=== PATIENT | female | born 1950 | race Caucasian/White ===

== ENCOUNTER 2023-11-30 10:33 | Outpatient (REF) | payer MEDICARE, MEDICAID, SELFPAY ==
[2023-11-30 14:48] LABS: Alanine Aminotransferase 18 U/L (0-31); Albumin Level 4.3 g/dL (3.5-5.0); Alkaline Phosphatase 61 U/L (39-117); Anion Gap 12 (12-20); Aspartate Amino Transferase 21 U/L (5-31); Bilirubin Direct 0.2 mg/dL (0.0-0.5); Bilirubin Total 0.5 mg/dL (0.0-1.0); Blood Urea Nitrogen 15 mg/dL (9-16); Calcium 9.7 mg/dL (8.4-10.2); Carbon Dioxide 27 mmol/L (22-29); Chloride 104 mmol/L (96-108); Cholesterol 220 mg/dL (<200); Estimated Glomerular Filt Rate > 60; Glucose Random 82 mg/dL (60-115); HDL Cholesterol 79 mg/dL (>40); LDL Cholesterol Calculated 124 mg/dL (<100); Potassium 3.9 mmol/L (3.3-5.1); Sodium 139 mmol/L (135-145); Total Protein 7.3 g/dL (6.5-8.0); Triglycerides 89 mg/dL (<150)
[2023-11-30 14:54] LABS: Thyroid Stimulating Hormone 1.74 uIU/mL (0.32-4.0)
== END 2023-11-30 10:34 | disposition home or self-care (01) ==
LOC: HO.CHCLDS 10:33
PROVIDERS: Visit Provider Student in an Organized Health Care Education/Training Program
DX: I10 Essential (primary) hypertension (principal); E03.9 Hypothyroidism, unspecified
CPT/HCPCS: 36415; 80048; 80061; 80076; 84443

== ENCOUNTER 2024-07-19 10:41 | Outpatient (REF) | payer MEDICARE, MEDICAID, SELFPAY ==
[2024-07-19 14:46] LABS: Alanine Aminotransferase 24 U/L (0-31); Albumin Level 4.1 g/dL (3.5-5.0); Alkaline Phosphatase 60 U/L (39-117); Anion Gap 10 (12-20); Aspartate Amino Transferase 31 U/L (5-31); Bilirubin Direct 0.2 mg/dL (0.0-0.5); Bilirubin Total 0.5 mg/dL (0.0-1.0); Blood Urea Nitrogen 16 mg/dL (9-16); Calcium 9.4 mg/dL (8.4-10.2); Carbon Dioxide 27 mmol/L (22-29); Chloride 106 mmol/L (96-108); Cholesterol 225 mg/dL (<200); Estimated Glomerular Filt Rate > 60; Glucose Random 84 mg/dL (60-115); HDL Cholesterol 78 mg/dL (>40); LDL Cholesterol Calculated 130 mg/dL (<100); Potassium 4.1 mmol/L (3.3-5.1); Sodium 139 mmol/L (135-145); Total Protein 7.2 g/dL (6.5-8.0); Triglycerides 88 mg/dL (<150)
[2024-07-19 15:03] LABS: TSH reflex Free T4 2.76 uIU/mL (0.32-4.0)
== END 2024-07-19 10:42 | disposition home or self-care (01) ==
LOC: HO.CHCLDS 10:41
PROVIDERS: Visit Provider Student in an Organized Health Care Education/Training Program
DX: I10 Essential (primary) hypertension (principal); E03.9 Hypothyroidism, unspecified; E78.00 Pure hypercholesterolemia, unspecified
CPT/HCPCS: 36415; 80048; 80061; 80076; 84443

== ENCOUNTER 2025-01-12 11:13 | Outpatient (REF) | payer MEDICARE, MEDICAID, SELFPAY ==
--- OUTSIDE RECORDS SUMMARY | 2025-01-12 13:33 | XMS_ITS | Encounter Summary ---
Author Organization [facility] Address [address] [place] [address] 7 [place] [address] Care Team Providers Care Neighborhood Aide Name Role Phone Mary Ellen Pinzon MD Primary Care Provider [phone] Encounter Details Date Type Department Care Team (Latest Contact Info) Description 05/26/2018 Abstract [facility] CONVERSIONS Dental, Provider, DDS Social History Tobacco Use Types Packs/Day Years Used Date Smoking Tobacco: Never Assessed Comments Unknown Sex and Gender Information Value Date Recorded Sex Assigned at Female 02/24/2022 10:19 AM EDT Legal Sex Female 10:19 AM EDT Gender Identity Female 02/24/2022 10:19 AM EDT Sexual Orientation Straight 02/24/2022 10 :19 AM EDT documented as of this encounter Plan of Treatment Upcoming Encounters Date Type Department Care Team (Late st Contact Info) Description 07/03/2025 10:00 AM EDT Office Visit [facility] ADULT DENTAL [address] [place] [address] Alvarez Grijalva documented as of this encounter Visit Diagnoses Not on filedocumented in this encounter Care Teams Neighborhood Aide Relationship Specialty Start Date End Date Mary Ellen Pinzon MD [address] [place] [address] PCP - General Family Medicine 04/12/12 documented as of this encounter
--- OUTSIDE RECORDS SUMMARY | 2025-01-12 13:33 | XMS_ITS | Encounter Summary ---
Author Organization [employer] Address [address] [place] [address] 7 [place] [address] Care Team Providers Care Architectural Representative Name Role Phone Mary Ellen Pinzon MD Primary Care Provider [phone] Reason for Visit * Reason Comments Med Refill Encounter Details Date Type Department Care Team ([facility] Contact Info) Description 09/01/2024 Refill [facility] CHC MED & PEDS [address] [place] [address] Mary Ellen Pinzon MD [address] [place] [address] Social History Tobacco Use Types Packs/Day Years Used Date Smoking Tobacco: Never Passive Smoke Exposure: Never Smokeless Tobacco: Never Alcohol Use Standard Drinks/Week Comments Never 0 (1 standard drink = 0.6 oz pur e alcohol) Depression Answer Date Recorded Patient Health Questionnaire-9 Score 0 09/29/2022 Housing Stability Answer Date Recorded What is your housing situation today? I have gera baker 11/24/[address] you li ve. Do you have problems with any of the following? None of the above 11/24/2023 Food Insecurity Answer Date Recorded Within the past 12 months, y ou worried that your food would run out before you got money to buy more: Never True 11/24/2023 Within the past 12 months,th e food you bought just didn't last and you didn't have enough money to get more: Never True Transportation Answer Date Recorded In the past 12 months, has l ack of transportation kept you from medical appts, meetings, work or from getting things needed for daily living? No 11/24/2023 Utilities Answer Date Recorded In the past 12 months, has t he electric, gas, oil or water company threatened to shut off services in your home? No 11/24/2023 Depression Answer Date Recorded Patient Health Questionnaire-2 Score 0 09/29/2022 Internet Access Answer Date Recorded Internet Access Q1 Yes 12/28/2023 Internet Access Q2 Not on file 12/28/2023 Comments No Sex and Gender Information Value Date Recorded Sex Assigned at Female 02/24/2022 10:19 AM EDT Legal Sex Female 10:19 AM EDT Gender Identity Female 02/24/2022 10:19 AM EDT Sexual Orientation Straight 02/24/2022 10 :19 AM EDT documented as of this encounter Plan of Treatment Upcoming Encounters Date Type Department Care Team (Late st Contact Info) Description 07/03/2025 10:00 AM EDT Office Visit [facility] ADULT DENTAL [address] [place] [address] Alvarez Grijalva documented as of this encounter Visit Diagnoses Not on filedocumented in this encounter Additional Health Concerns Assessment Noted Time PHQ-9 Depression Total Score: 0 09/30/19 23 10:35 AM EDT documented as of this encounter Care Teams Architectural Representative Relationship Specialty Start Date End Date Mary Ellen Pinzon MD [address] [place] [address] PCP - General Family Medicine 04/12/12 documented as of this encounter
--- OUTSIDE RECORDS SUMMARY | 2025-01-12 13:33 | XMS_ITS | Encounter Summary ---
Author Organization [employer] Address [address] [place] [address] 7 [place] [address] Care Team Providers Care Instructor Of Spanish Name Role Phone Mary Ellen Pinzon MD Primary Care Provider [phone] Reason for Visit * Reason Comments Med Change Request Encounter Details Date Type Department Care Team ([facility] Contact Info) Description 01/11/2025 Refill [facility] CHC MED & PEDS [address] [place] [address] Mary Ellen Pinzon MD [address] [place] [address] Anxiety Social History Tobacco Use Types Packs/Day Years [...] Description 07/03/2025 10:00 AM EDT Office Visit [facility] ADULT DENTAL [address] [place] [address] Alvarez Grijalva documented as of this encounter Visit Diagnoses Diagnosis Anxiety Anxiety state, unspecified documented in this encounter Additional Health Concerns Assessment Noted Time PHQ-9 Depression Total Score: 0 09/30/19 23 10:35 AM EDT documented as of this encounter Care Teams Instructor Of Spanish Relationship Specialty Start Date End Date Mary Ellen Pinzon MD [address] [place] [address] PCP - General Family Medicine 04/12/12 documented as of this encounter
--- OUTSIDE RECORDS SUMMARY | 2025-01-12 13:33 | XMS_ITS | Encounter Summary ---
Author Organization [employer] Address [address] [place] [address] 7 [place] [address] Care Team Providers Care Butcher Or Smallgoods Maker Name Role Phone Mary Ellen Pinzon MD Primary Care Provider [phone] Reason for Visit * Reason Comments Med Refill Encounter Details Date Type Department Care Team ([facility] Contact Info) Description 09/08/2023 Refill [facility] CHC MED & PEDS [address] [place] [address] Mary Ellen Pinzon MD [address] [place] [address] Social History Tobacco Use Types Packs/Day Years Used Date Smoking Tobacco: Never Passive Smoke Exposure: Never Smokeless Tobacco: Never Alcohol Use Standard Drinks/Week Comments Never 0 (1 standard drink = 0.6 oz pur e alcohol) Depression Answer Date Recorded Patient Health Questionnaire-9 Score 0 09/29/2022 Housing Stability Answer Date Recorded What is your housing situation today? I have gera baker 03/07/[address] you li ve. Do you have problems with any of the following? None of the above 03/07/2023 Food Insecurity Answer Date Recorded Within the past 12 months, y ou worried that your food would run out before you got money to buy more: Never True 03/07/2023 Within the past 12 months,th e food you bought just didn't last and you didn't have enough money to get more: Never True 02/2023 Transportation Answer Date Recorded In the past 12 months, has l ack of transportation kept you from medical appts, meetings, work or from getting things needed for daily living? No 03/07/2023 Utilities Answer Date Recorded In the past 12 months, has t he electric, gas, oil or water company threatened to shut off services in your home? No 03/07/2023 Depression Answer Date Recorded Patient Health Questionnaire-2 Score 0 09/29/2022 Comments No Sex and Gender Information Value [...] Description 07/03/2025 10:00 AM EDT Office Visit [facility] ADULT DENTAL [address] [place] [address] Alvarez Grijalva documented as of this encounter Visit Diagnoses Not on filedocumented in this encounter Additional Health Concerns Assessment Noted Time PHQ-9 Depression Total Score: 0 09/30/19 10:35 AM EDT documented as of this encounter Care Teams Butcher Or Smallgoods Maker Relationship Specialty Start Date End Date Mary Ellen Pinzon MD [address] [place] [address] PCP - General Family Medicine 04/12/12 documented as of this encounter
--- OUTSIDE RECORDS SUMMARY | 2025-01-12 13:33 | XMS_ITS | Encounter Summary ---
Author Organization [employer] Address [address] [place] [address] 7 [place] [address] Care Team Providers Care Settlement Clerk Name Role Phone Mary Ellen Pinzon MD Primary Care Provider [phone] Reason for Visit * Reason Onset Date Comments Lab Orders 09/28/2023 Encounter Details Date Type Department Care Team ([facility] st Contact Info) Description 09/28/2023 Telephone [facility] MEDICINE [address] [place] [address] Mary Ellen Pinzon MD [address] [place] [address] Lab Orders Social History Tobacco Use Types Packs/Day Years [...] AM EDT documented as of this encounter Miscellaneous Notes * Telephone Encounter - Wing Omaira RN - 10/02/2023 12:14 PM EDT Tc to pt regarding labs being ordered and cane be done when pt is available. Pt verbalized understanding and agreement with plan. * Telephone Encounter - Mary Ellen Pinzon MD - 10/02/2023 11:27 AM EDT Lab order sent * Telephone Encounter - Wing Omaira RN - 09/28/2023 4:17 PM EDT Please advise, tc to pt about lab request. Pt stated provider ordered labs before appt to help adjust thyroid and BP medications at visit. Stated would pass request up to PCP and would have a nurse call when the PCP responded. Pt verbalized understanding and agreement with plan. Stated she would call next week if she heard nothing back. * Telephone Encounter - Jase Moore - 09/28/2023 3:39 PM EDT Tc from pt requesting labs for upcoming appt 11/29. Pt stated no immediate concerns, just wants to get a full check up. If any questions please contact pt at [phone]. documented in this encounter Plan of Treatment Upcoming Encounters Date Type Department Care Team (Late st Contact Info) Description 07/03/2025 10:00 AM EDT Office Visit [facility] ADULT DENTAL [address] [place] [address] Alvarez Grijalva documented as of this encounter Visit Diagnoses Not on filedocumented in this encounter Additional Health Concerns Assessment Noted Time PHQ-9 Depression Total Score: 0 09/30/19 10:35 AM EDT documented as of this encounter Care Teams Settlement Clerk Relationship Specialty Start Date End Date Mary Ellen Pinzon MD [address] [place] [address] PCP - General Family Medicine 04/12/12 documented as of this encounter
--- OUTSIDE RECORDS SUMMARY | 2025-01-12 13:33 | XMS_ITS | Clinical Summary ---
Author Organization [employer] Address [address] [facility] 7t [place] [address] Care Team Providers Care Sales Commissions Analyst Name Role Phone Mary Ellen Pinzon MD Primary Care Provider [phone] Allergies Active Allergy Reactions Criticality Noted Date Comments Amlodipine Hives High 07/03/2016 Hydrochlorothiazide High 07/03/2016 Other reaction(s): Hives / Skin Rash Lisinopril Hives High 07/03/2016 Sulfa Antibiotics 09/15/2011 Other reaction(s): Hives / Skin Rash Medications Diclofenac Sodium 1 % gel apply (2G) by topical route 4 times every day to the affected area(s) 11/14/19 18 Active omega-3 1000 MG capsule capsule TAKE 1 CAPSULE BY MOUTH EVERY DAY OTC NOT COVERED BY INSURANCE 90 capsule 3 12/18/19 24 Active fluticasone (Flonase) 50 MCG/ACT nasal spray USE 2 SPRAY INTO EACH NOSTRIL ONCE PER DAY. SHAKE GENTLY BEFORE FIRST USE. PRIME PUMP. AFTER USE,CLEAN TIP AND REPLACE CAP 16 mL 2 06/07/19 25 Active levothyroxine (Synthroid, Levoxyl) 50 MCG tablet TAKE 1 TABLET BY MOUTH EVERY DAY IN THE MORNING 90 tablet 3 08/04/19 25 Active cloNIDine (Catapres) 0.1 MG tablet TAKE 1 TABLET BY MOUTH 2 TIMES DAILY 60 tablet 11 08/25/19 25 Active naproxen (Naprosyn) 500 MG tablet TAKE 1 TABLET BY MOUTH EVERY DAY WITH FOOD 30 tablet 5 09/27/19 25 Active omeprazole (PriLOSEC) [address] capsule TAKE 1 CAPSULE BY MOUTH BEFORE BREAKFAST. DO NOT CRUSH OR CHEW. 30 capsule 11 11/23/19 25 Active hydrALAZINE (Apresoline) 10 MG tablet TAKE 1 TABLET BY MOUTH EVERY DAY 30 tablet 11 12/20/19 25 Active amoxicillin (Amoxil) 500 MG capsule 12/29/19 25 Active hydrOXYzine HCl (Atarax) 25 MG tabletIndicati ons:Anxiety TAKE 1 TABLET BY MOUTH IF NEEDED IN THE MORNING,AT NOON AND AT BEDTIME FOR ANXIETY 270 tablet 1 01/13/20 25 Active hydrALAZINE (Apresoline) 10 MG tablet Take 1 tablet (10 mg) by mouth Once per day. 30 tablet 11 12/03/19 24 025 Discontinued hydrOXYzine HCl (Atarax) 25 MG tabletIndicati ons:Anxiety Take 1 tablet (25 mg) by mouth if needed in the morning, at noon, and at bedtime for anxiety. 90 tablet 12/21/19 25 025 Discontinued amoxicillin (Amoxil) 500 MG capsule Take 2 capsules (1,000 mg) by mouth 1 (one) time for 1 dose. 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 MED & [facility]EDS [address] [place] [address] Mary Ellen Pinzon MD Anxiety 01/05/2025 1:00 PM EDT Office Visit [facility] ADULT DENTAL [address] [place] [address] Murray Abreu DDS 12/28/2024 Orders Only [facility] MED & PEDS [address] [place] [address] Mary Ellen Pinzon MD 12/27/2024 1:00 PM EDT Office Visit [facility] ADULT DENTAL [address] [facility] [id number] Alvarez Grijalva Dental calculus (Primary Dx) 12/27/2024 Telephone [facility] MED & PEDS [address] [facility] [place] Arcehr13 Mary Ellen Pinzon MD 12/20/2024 10:15 AM EDT Office [facility] MED & PEDS [address] [place] [address] Mary Ellen Pinzon MD Benign hypertension (Primary Dx); Pure hypercholesterolemia; Hypothyroidism, unspecified type; Anxiety 12/20/2024 Travel 12/17/2024 Refill [facility] MED & PEDS [address] [place] [address] Mary Ellen Pinzon MD 12/15/2024 Telephone [facility] MED & PEDS [address] [facility] [place] [address] Mary Ellen Pinzon MD Chart Prep 11/19/2024 Refill [facility] MED & PEDS [address] [place] [address] Mary Ellen Pinzon MD from Last 3 Months Immunizations Immunization Administration Dates Next Due Influenza High-dose Quadrivalent Preservative Fr ee 05/01/2022,01/22/2021 Influenza Quadrivalent Adjuvanted 12/28/2019 Influenza, Split (incl. purified surface antigen ) 05/19/2012 Pneumococcal Conjugate PCV 13 02/07/2016, 015 Pneumococcal Polysaccharide PPSV23 01/01/2018 RSV Adjuvant 05/17/2024 Tdap 02/07/2016 Zoster, live 10/08/2015 Social History Tobacco Use Types Packs/Day Years Used Date Smoking Tobacco: Never Passive Smoke Exposure: Never Smokeless Tobacco: Never Tobacco Cessation:Counseling Given: Not Answered Alcohol Use Standard Drinks/Week Comments Never 0 [...] Orientation Straight 02/24/2022 10 :19 AM EDT Last Filed Vital Signs Vital Sign Reading Time Taken Comments Blood Pressure 170/80 01/05/2025 1:09 PM EDT Pulse 66 12/27/2024 1:01 PM EDT Temperature 36.4 C (97.6 F) 12/20/2024 10:19 AM EDT Respiratory Rate 16 12/20/2024 10:19 AM EDT Oxygen Saturation 98% 12/03/2023 10:32 AM EDT Inhaled Oxygen Concentration - - Weight 63.5 kg (140 lb) 12/20/2024 10:19 AM EDT Height 151.8 cm (4' 11.75 ) 12/20/2024 10:19 AM EDT Body Mass Index 27.57 12/20/2024 10:19 AM EDT Plan of Treatment Upcoming Encounters Date Type Department Care Team (Late st Contact Info) Description 07/03/2025 10:00 AM EDT Office Visit [facility] ADULT DENTAL [address] [place] [address] Alvarez Grijalva Health Maintenance Due Date Last Done Comments Alcohol/Substance Use Screening 1962 Hepatitis C Screening 1966 Zoster Vaccines (2 of 3) 12/03/2015 10/08/2015 Depression Screening 09/30/2023 09/29/2022, 09/30/19 23 Dental Oral Exam 06/25/2024 12/23/2023 SDOH Screening 11/23/2024 11/24/2023 COVID-19 Vaccine (7 - 2025-26 season) 2024 02/04/2023, 05/01/2022, 10/17/2021, Additional history exists Influenza Vaccine (#1) 2024 , 02/04/2023, 05/01/2022, Additional history exists Dental Prophylaxis 06/27/2025 12/27/2024, 0 12/23/2023, 11/10/2022 Tobacco Screening 12/27/2025 12/27/2024 Dental X-Ray: Bitewings 12/28/2025 12/28/19 25, 12/23/2023, 12/08/2022, Additional history exists DTaP/Tdap/Td Vaccines (2 - Td or Tdap) 02/06/2026 02/07/2016 Dental X-Ray: Full Mouth 12/23/2026 12/23/2023 Lipid Panel 07/19/2029 07/19/2024, 08/0 08/2023, 10/08/2022, Additional history exists Pneumococcal Vaccine: 50+ Years Completed 01/01/2018, 02/07/2016, 03/15/2015 RSV Patients and Patients Aged 60 years or older Completed 05/17/2024 HIB Vaccines Aged Out No longer eligi ble based on patient's age to complete this topic HPV Vaccines Aged Out No longer eligi ble based on patient's age to complete this topic Hepatitis A Vaccines Aged Out No long er eligible based on patient's age to complete this topic Hepatitis B Vaccines Aged Out No long er eligible based on patient's age to complete this topic IPV Vaccines Aged Out No longer eligi ble based on patient's age to complete this topic Meningococcal B Vaccine Aged Out No l onger eligible based on patient's age to complete this topic Meningococcal Vaccine Aged Out No jim brendan eligible based on patient's age to complete this topic RSV under 20 months Aged Out No longe r eligible based on patient's age to complete this topic Rotavirus Vaccines Aged Out No longer eligible based on patient's age to complete this topic Procedures Procedure Name Priority Date/Time Associated Diagnosis Comments 22 F(V) RESIN-BASED COMPOSITE - 1 SURF, ANTERIOR Routine 01/05/2025 1:00 PM EDT CASE PRESENTATION, DETAILED AND EXTENSIVE TREATMENT PLANNING Routine 01/05/2025 1:00 PM EDT CARIES RISK ASSESSMENT AND DOCUMENTATION, HIGH RISK Routine 12/27/2024 1:00 PM EDT COMPREHENSIVE PERIODONTAL EVALUATION - NEW OR ESTABLISHED PATIENT Routine 12/27/2024 1:00 PM EDT INTRAORAL - PERIAPICAL FIRST RADIOGRAPHIC IMAGE Routine 12/27/2024 1:00 PM EDT BITEWINGS - 4 RADIOGRAPHIC IMAGES Routine 12/27/2024 1:00 PM EDT CASE PRESENTATION, DETAILED AND EXTENSIVE TREATMENT PLANNING Routine 12/27/2024 1:00 PM EDT ORAL HYGIENE INSTRUCTIONS Routine 12/27/2024 1:00 PM EDT NUTRITIONAL COUNSELING FOR CONTROL OF DENTAL DISEASE Routine 12/27/2024 1:00 PM EDT PROPHYLAXIS - ADULT Routine 12/27/2024 1 :00 PM EDT INTRAORAL - PERIAPICAL EACH ADDITIONAL RADIOGRAPHIC IMAGE Routine 12/27/2024 1:00 PM EDT LIPID PANEL, STANDARD Routine 07/19/2024 10:44 AM EDT Pure hypercholesterolemia INTRAORAL - COMPLETE SERIES OF RADIOGRAPHIC IMAGES Routine 12/23/2023 1:00 PM EDT PERIODIC ORAL EVALUATION - ESTABLISHED PATIENT Routine 12/23/2023 1:00 PM EDT from Last 3 Months or Most Recently Relevant to Health Maintenance Results * (ABNORMAL) Lipid Panel, Standard (07/19/2024 10:44 AM EDT) Triglycerides 88 <150 mg/dL [facility] Comment:Desirable Triglyceri de: less than 150 mg/dLBorderline High Triglyceride 150-199 mg/dLHigh Triglyceride: 200-499 mg/dLVery High Triglyceride: greater than or equal to 5OO mg/dL Cholesterol 225(H) <200 mg/dL [facility] Comment:Desirable Cholestero l: less than 200 mg/dLBorderline High Cholesterol: 200-239 mg/dLHigh Cholesterol: greater than 239 mg/dL LDL Cholesterol Calculated 130(H) <100 mg/dL [facility] Comment:Desirable LDL: less than 100 mg/dLNear Optimal/Above Optimal LDL: 110- 129 mg/dLBorderline High LDL: 130-159 mg/dLHigh LDL: 160-189 mg/dLVery High LDL: greater than or equal to 190 mg/dL HDL Cholesterol 78 >40 mg/dL [facility] Comment:Desirable HDL: great er than 40 mg/dL Note: This HDL assay may give artificially low results in patients with liver disease. Blood Venous blood specimen / Unknown 07/19/2024 10:44 AM EDT 07/19/2024 2:14 PM EDT us Mary Ellen Pinzon MD LAB BLOOD ORDERABLES Final Resul t [facility] [address] [place] [address] [phone] from Last 3 Months or Most Recently Relevant to Health Maintenance Insurance MEDICARE [facility] [place] [address] DENTAL - HSN FULL (MEDICAID[place] * Guarantor: Lucero Floyd Account Type Relation to Patient Date of Phone Billing Address Personal/Family Self [place] [address] Care Teams Sales Commissions Analyst Relationship Specialty Start Date End Date Mary Ellen Pinzon MD [address] [place] [address] PCP - General Family Medicine 04/12/12
--- OUTSIDE RECORDS SUMMARY | 2025-01-12 13:33 | XMS_ITS | Encounter Summary ---
Author Organization [employer] Address [address] [facility] 7 [place] [address] Care Team Providers Care Firer Electric Locomotive Name Role Phone Mary Ellen Pinzon MD Primary Care Provider [phone] Reason for Visit * Reason Onset Date Comments Medication Question 12/10/2023 Encounter Details Date Type Department Care Team ([facility] st Contact Info) Description 12/10/2023 Telephone [facility] MEDICINE [address] [place] [address] Mary Ellen Pinzon MD [address] [place] [address] Medication Question Social History Tobacco Use Types Packs/Day Years [...] encounter Miscellaneous Notes * Telephone Encounter - Jabier Sigala - 12/15/2023 3:09 PM EDT Tc from pt returning call. Press Manager informed previous message. Pt verbalizes understanding. * Telephone Encounter - Wing Omaira RN - 12/14/2023 9:20 AM EDT Tc to pt to relay that medication in capsule form has been sent. Unable to reach pt. Left message for pt to call back. * Telephone Encounter - Mary Ellen Pinzon MD - 12/14/2023 8:27 AM EDT Capsules sent to [facility] * Telephone Encounter - Jase Moore - 12/10/2023 10:01 AM EDT Tc from pt calling in regards to Omeprazole 20 MG tablet delayed-release. Pt sated script was sent for tablets but she was informed by pharmacy insurance will not cover tablets script would need to be sent as capsules. If any questions you can contact pt at [phone]. documented in this encounter Plan of Treatment Upcoming Encounters Date Type Department Care Team (Late st Contact Info) Description 07/03/2025 10:00 AM EDT Office Visit [facility] ADULT DENTAL [address] [place] [address] Alvarez Grijalva documented as of this encounter Visit Diagnoses Not on filedocumented in this encounter Additional Health Concerns Assessment Noted Time PHQ-9 Depression Total Score: 0 09/30/19 10:35 AM EDT documented as of this encounter Care Teams Firer Electric Locomotive Relationship Specialty Start Date End Date Mary Ellen Pinzon MD [address] [place] [address] PCP - General Family Medicine 04/12/12 documented as of this encounter
--- OUTSIDE RECORDS SUMMARY | 2025-01-12 13:33 | XMS_ITS | Encounter Summary ---
Author Organization [facility] [facility] Address [address] [place] [address] [address] [place] [address] Care Team Providers Care Nurse Aide Name Role Phone Mary Ellen Pinzon MD Primary Care Provider [phone] Encounter Details Date Type Department Care Team (Latest Contact Info) Description 03/03/2022 Abstract [facility] CONVERSIONS Dental, Provider, DDS Social History Tobacco [...] Description 07/03/2025 10:00 AM EDT Office Visit [facility] CHC ADULT DENTAL [address] [place] [address] Alvarez Grijalva documented as of this encounter Visit Diagnoses Not on filedocumented in this encounter Care Teams Nurse Aide Relationship Specialty Start Date End Date Mary Ellen Pinzon MD [address] [place] [address] PCP - General Family Medicine 04/12/12 documented as of this encounter
--- OUTSIDE RECORDS SUMMARY | 2025-01-12 13:33 | XMS_ITS | Encounter Summary ---
Author Organization [email or web address] Address [address] [place] [address] [address] [place] [address] Care Team Providers Care Slate Roofer Helper Name Role Phone Mary Ellen Pinzon MD Primary Care Provider [phone] Reason for Visit * Reason Onset Date Comments case back from lab 01/14/2023 Encounter Details Date Type Department Care Team (Late st Contact Info) Description 01/14/2023 Telephone [facility] [address] [place] [address] Georges Johnson, DDS [address] [place] [address] case back from lab Social History Tobacco Use Types Packs/Day Years Used Date Smoking Tobacco: Never Passive Smoke Exposure: Never Smokeless Tobacco: Never Alcohol Use Standard Drinks/Week Comments Never 0 (1 standard drink = 0.6 oz pur e alcohol) Depression Answer Date Recorded Patient Health Questionnaire-9 Score 0 09/29/2022 Depression Answer Date Recorded Patient Health Questionnaire-2 Score 0 09/29/2022 Comments No Sex and Gender Information Value Date Recorded Sex Assigned at Female 02/24/2022 10:19 AM EDT Legal Sex Female 10:19 AM EDT Gender Identity Female 02/24/2022 10:19 AM EDT Sexual Orientation Straight 02/24/2022 10 :19 AM EDT documented as of this encounter Miscellaneous Notes * Telephone Encounter - Linda Cline - 01/14/2023 10:55 AM EDT Patient calling in to check on status of case is back from lab for scheduling DR documented in this encounter Plan of Treatment Upcoming Encounters Date Type Department Care Team (Late st Contact Info) Description 07/03/2025 10:00 AM EDT Office Visit [facility] AD[facility] [address] [place] [address] Alvarez Grijalva documented as of this encounter Visit Diagnoses Not on filedocumented in this encounter Additional Health Concerns Assessment Noted Time PHQ-9 Depression Total Score: 0 09/30/19 23 10:35 AM EDT documented as of this encounter Care Teams Slate Roofer Helper Relationship Specialty Start Date End Date Mary Ellen Pinzon MD [address] [place] [id number] PCP - General Family Medicine 04/12/12 documented as of this encounter
--- OUTSIDE RECORDS SUMMARY | 2025-01-12 13:33 | XMS_ITS | Encounter Summary ---
Author Organization [facility] Address [address] [place] [address] [address] [place] [address] Care Team Providers Care Foundry Worker General Name Role Phone Mary Ellen Pinzon MD Primary Care Provider [phone] Encounter Details Date Type Department Care Team (Latest Contact Info) Description 05/31/2019 Abstract [facility] CONVERSIONS Dental, Provider, DDS Social History Tobacco [...] Description 07/03/2025 10:00 AM EDT Office Visit [facility] [address] [place] [address] Alvarez Grijalva documented as of this encounter Visit Diagnoses Not on filedocumented in this encounter Care Teams Foundry Worker General Relationship Specialty Start Date End Date Mary Ellen Pinzon MD [address] [place] [id number] PCP - General Family Medicine 04/12/12 documented as of this encounter
--- OUTSIDE RECORDS SUMMARY | 2025-01-12 13:33 | XMS_ITS | Encounter Summary ---
Author Organization [employer] Address [address] [facility] [address] [place] [address] Care Team Providers Care Senior Quality Methods Specialist Name Role Phone Mary Ellen Pinzon MD Primary Care Provider [phone] Encounter Details Date Type Department Care Team (Late st Contact Info) Description 10/09/2022 Orders Only [facility] [address] [place] [address] Mary Ellen Pinzon MD [address] [place] [address] Social History Tobacco Use Types Packs/Day Years Used Date Smoking Tobacco: Never Smokeless Tobacco: Never Alcohol Use Standard [...] Orientation Straight 02/24/2022 10 :19 AM EDT COVID-19 Exposure Response Date Recorded In the last 10 days, have yo u been in contact with someone who was confirmed or suspected to have Coronavirus/COVID-19? No / Unsure 09/29/2022 10:08 AM EDT documented as of this encounter Plan of Treatment Upcoming Encounters Date Type Department Care Team (Late st Contact Info) Description 07/03/2025 10:00 AM EDT Office Visit [facility] AD[facility] [address] [place] [address] Alvarez Grijalva documented as of this encounter Visit Diagnoses Not on filedocumented in this encounter Additional Health Concerns Assessment Noted Time PHQ-9 Depression Total Score: 0 09/30/19 23 10:35 AM EDT documented as of this encounter Care Teams Senior Quality Methods Specialist Relationship Specialty Start Date End Date Mary Ellen Pinzon MD [address] [place] [id number] PCP - General Family Medicine 04/12/12 documented as of this encounter
[2025-01-12 15:17] LABS: Alanine Aminotransferase 18 U/L (0-31); Albumin Level 4.5 g/dL (3.5-5.0); Alkaline Phosphatase 65 U/L (39-117); Anion Gap 12 (12-20); Aspartate Amino Transferase 25 U/L (5-31); Blood Urea Nitrogen 17 mg/dL (9-16); Calcium 9.6 mg/dL (8.4-10.2); Carbon Dioxide 28 mmol/L (22-29); Chloride 103 mmol/L (96-108); Cholesterol 212 mg/dL (<200); Estimated Glomerular Filt Rate > 60; HDL Cholesterol 77 mg/dL (>40); Potassium 3.9 mmol/L (3.3-5.1); Sodium 139 mmol/L (135-145); Total Protein 7.4 g/dL (6.5-8.0); Triglycerides 94 mg/dL (<150)
== END 2025-01-12 11:14 | disposition home or self-care (01) ==
LOC: HO.CHCLDS 11:13
PROVIDERS: Visit Provider Student in an Organized Health Care Education/Training Program
DX: I10 Essential (primary) hypertension (principal); E78.00 Pure hypercholesterolemia, unspecified; E03.9 Hypothyroidism, unspecified
CPT/HCPCS: 36415; 80048; 80061; 80076; 84443